=== PATIENT | male | born 1990 | race Caucasian/White ===

== ENCOUNTER 2017-04-02 17:09 | Outpatient (CLI) | payer OTHER | END 2017-04-02 17:10 | disposition EMS.NT | LOC: EMS 17:09 | PROVIDERS: ATTEND Surgery | DX: S50.812A Abrasion of left forearm, initial encounter (principal); W25.XXXA Contact with sharp glass, initial encounter; V43.51XA Car driver injured in collision with sport utility vehicle in traffic accident, initial encounter; Y92.414 Local residential or business street as the place of occurrence of the external cause ==